=== PATIENT | female | born 1985 | race African-American/Black ===

== ENCOUNTER 2021-07-25 09:33 | Emergency (ER) | payer MEDICAID, OTHER ==
[~2021-07-25] VITALS: Ht 165.1 cm; Wt 77.0 kg
[~2021-07-25 09:33] MED LIST: VICODIN
[2021-07-25] MEDS ORDERED: IBUPROFEN 800MG TABLET PO ONE (10:30)
[2021-07-25] MEDS ORDERED: PREDNISONE 20MG TABLET PO ONE (10:30)
[2021-07-25] MEDS ORDERED: PEN G BENZ/PEN G PROCAINE CR 1.2 MMU/2 ML IM ONE (12:30)
[2021-07-25 13:03] VITALS: BP 127/86
== END 2021-07-25 13:08 | disposition home or self-care (01) ==
LOC: ER 09:33
DX: J02.0 Streptococcal pharyngitis (principal)
CPT/HCPCS: 87430; 96372; 99283; J0558; J7512